=== PATIENT | male | born 1970 | race Caucasian/White ===

== ENCOUNTER 2017-04-26 13:28 | Emergency (ER) | payer SELFPAY ==
[2017-04-26 13:46] VITALS: BP 166/99
--- NOTE | 2017-04-26 15:06 | EDM.PDOC ---
ED HPI GENERAL MEDICAL PROBLEM - General Chief Complaint: Lower Extremity Injury/Pain Stated Complaint: RT FOOT PAIN Time Seen by Provider: 04/26/17 13:50 Source of Information: Reports: Patient History Limitations: Reports: No Limitations - History of Present Illness INITIAL COMMENTS - FREE TEXT/NARRATIVE: 46-year-old male presents for evaluation treatment of pain to the right dorsal foot. Patient reports that pain per started about 1 week ago. He reports that he has difficulty pushing down on the gas due to the pain. Reports movement makes the pain worse. Currently complaining of pain to the right dorsal foot. He states that last night he appreciated Swelling and erythema to the area. This is mostly resolved today. He has been taking Tylenol and ibuprofen for pain. He has also been icing the area. Patient reports that about one month ago he was started on colchicine and allopurinol for gout. He has severe gout the right great toe. He reports that his uric acid levels have significantly declined with the allopurinal. All. He is now been off the colchicine for several weeks. Reports the swelling and erythema to the right great toe is significantly improved since starting the allopurinol and taking the colchicine for one month. Right Feet Pain Score (Numeric/FACES): 6 - Related Data Allergies Allergy/AdvReac Type Severity Reaction Status Date / Time No Known Allergies Allergy Verified 04/26/17 13:40 Home Meds: Home Meds Allopurinol [Zyloprim] 300 mg PO DAILY 04/26/17 [History] Prednisone [IJD: predniSONE] 40 mg PO WITHBREAKFAST #11 tab 04/26/17 [Rx] Past Medical History Respiratory History: Reports: Asthma Musculoskeletal History: Reports: Gout - Past Surgical History Male Surgical History: Reports: Vasectomy Social & Family History - Tobacco Use Smoking Status *Q: Current Every Day Smoker Years of Tobacco use: 7 Packs/Tins Daily: 0.5 - Caffeine Use Caffeine Use: Reports: Coffee, Soda - Recreational Drug Use Recreational Drug Use: No Review of Systems - Review of Systems Review Of Systems: See Below Musculoskeletal: Reports: Foot Pain (dorsal right foot), Joint Swelling ( swelling to the dorsal right foot last night, now mostly resolved), Other (pain with movement to the dorsal right foot) Skin: Reports: Erythema (last night now resolved to the dorsal right foot) ED EXAM, GENERAL - Physical Exam Exam: See Below Exam Limited By: No Limitations General Appearance: Alert, WD/WN, No Apparent Distress Respiratory/Chest: No Respiratory Distress Cardiovascular: Normal Peripheral Pulses, Regular Rate, Rhythm Peripheral Pulses: 3+: Posterior Tibial (L), Posterior Tibial (R), Dorsalis Pedis (L), Dorsalis Pedis (R) Extremities: Normal Inspection, Normal Range of Motion, Normal Capillary Refill , Other (identifies tenderness to palpation of a dorsal right foot tendon). No : Increased Warmth Neurological: Alert, Normal Cognition Psychiatric: Normal Affect, Normal Mood Skin Exam: Warm, Dry, Normal Color. No: Erythema Course - Vital Signs Last Recorded V/S: Last Vital Signs Temp 36.8 C 04/26/17 13:44 Pulse 78 04/26/17 13:44 Resp 20 04/26/17 13:44 BP 166/99 H 04/26/17 13:44 Pulse Ox 96 04/26/17 13:44 - Radiology Interpretation Free Text/Narrative:: xray of the right foot shows no acute fractures or dislocations - Re-Assessments/Exams Free Text/Narrative Re-Assessment/Exam: 04/26/17 15:00 I reviewed the x-ray results with the patient. i feel this more likely tendinitis as he directly identified a tendon which caused the sore area. It is also possible that it is gout. Will try him on some prednisone as this will help with both the tendinitis and gout. His follow-up with his primary care provider for symptoms persist. Discharge instructions as documented. Departure - Departure Time of Disposition: 15:03 Disposition: Home, Self-Care 01 Condition: Good Clinical Impression: Tendonitis - Discharge Information Prescriptions: Prednisone [IJD: predniSONE] 40 mg PO WITHBREAKFAST #11 tab Instructions: Tendinitis Referrals: PCP,Not In Area [Primary Care Provider] - Forms: ED Department Discharge Additional Instructions: take the prednisone as prescribed. 2 tabs on days 1 through 3, 1 tab on days 4 through 6, then 1/2 tab on days 7 through 10. You may take [id number] Tylenol or Motrin as needed for additional pain relief. Ice the area as needed. Follow-up with your primary care provider if your symptoms are not much better within 2 weeks. Please return to the ER if your symptoms change or worsen.
--- NOTE | 2017-04-28 19:59 | CR ---
Right foot: Four views of the right foot were obtained. Comparison: No prior foot exam. Joint spaces are preserved. Minimal spurring calcification is seen within the distal Achilles tendon at its attachment to the calcaneus. No acute fracture or other bony abnormality is appreciated. Impression: 1. Small spur and calcifications off the posterior calcaneus as described above. 2. No additional abnormality is identified on right foot exam. Diagnostic code #2
== END 2017-04-26 15:15 | disposition home or self-care (01) ==
LOC: JD.ED 13:28
DX: M77.51 Other enthesopathy of right foot and ankle (principal); J45.909 Unspecified asthma, uncomplicated; F17.210 Nicotine dependence, cigarettes, uncomplicated; Z79.899 Other long term (current) drug therapy
CPT/HCPCS: 73630-26-RT; 73630-RT; 99283